=== PATIENT | male | born 1940 | race Caucasian/White ===

== ENCOUNTER 2017-04-15 13:24 | Day surgery (SDC) | payer MEDICARE, OTHER ==
[~2017-04-15] VITALS: Ht 177.8 cm; Wt 99.3 kg
[~2017-04-15 13:24] MED LIST: ACET325 PO; CHLORTHALIDONE; CITA20 PO; COLE1 PO; DUTA.5 PO; HYDR1TAB94 PO; LATA.005SO BOTHEYES; LEVSOD150 PO; LEVSOD175 PO; LISI5 PO; METF500 PO; METF850 PO; POTA10T PO; SERT50 PO; Synthroid150 MCG PO; TAMS.4ER PO; TRAZ100 PO; Tylophen500 MG PO; WARF1 PO; WARF10 PO; WARF5 PO; XARELTO20 MG PO; ZOLP5 PO; [UNRECOGNIZED DRUG - OTHER] PO
[2017-04-15] MEDS ORDERED: SODCHL1 (13:49)
[2017-04-15] MEDS ORDERED: CHLO25B (13:49)
[2017-04-15] MEDS ORDERED: Xalatan2.5 ML (13:50)
[2017-04-15] MEDS ORDERED: TEMA15 (13:50)
[2017-04-15] MEDS ORDERED: ACET325 (13:51)
[2017-04-15] MEDS ORDERED: CANNABIS OIL (13:51)
== END 2017-04-15 15:46 | disposition home or self-care (01) ==
LOC: ORSCSDS 13:24
PROVIDERS: Internal Medicine Gastroenterology
PROC: 0DBK8ZX Excision of Ascending Colon, Via Natural or Artificial Opening Endoscopic, Diagnostic (ICD-10-PCS; principal; 2017-04-15 14:45)
DX: Z12.11 Encounter for screening for malignant neoplasm of colon (principal); K63.5 Polyp of colon; K64.8 Other hemorrhoids; K57.30 Diverticulosis of large intestine without perforation or abscess without bleeding; Z86.010 Personal history of colon polyps; Z80.0 Family history of malignant neoplasm of digestive organs; I48.91 Unspecified atrial fibrillation; G47.33 Obstructive sleep apnea (adult) (pediatric); E11.9 Type 2 diabetes mellitus without complications; E03.9 Hypothyroidism, unspecified; I10 Essential (primary) hypertension; E78.00 Pure hypercholesterolemia, unspecified; E66.9 Obesity, unspecified; Z68.31 Body mass index [BMI] 31.0-31.9, adult; F90.9 Attention-deficit hyperactivity disorder, unspecified type; F95.2 Tourette's disorder; Z87.891 Personal history of nicotine dependence; Z79.01 Long term (current) use of anticoagulants; Z79.84 Long term (current) use of oral hypoglycemic drugs; Z79.899 Other long term (current) drug therapy
CPT/HCPCS: 82947; 88305; J7120

== ENCOUNTER 2018-06-13 06:47 | Emergency (ER) | payer MEDICARE, OTHER ==
[~2018-06-13] VITALS: Ht 175.3 cm; Wt 99.8 kg
[~2018-06-13 06:47] MED LIST changes: +ACET325; +CANNABIS OIL; +CHLO25B; +METF500C PO; -METF850 PO; +SODCHL1; +TEMA15; +Xalatan2.5 ML
[2018-06-13] MEDS ORDERED: TRAZ50 PO (07:36)
[2018-06-13] MEDS ORDERED: Robaxin500 MG PO ×2 (09:11→09:13)
== END 2018-06-13 09:38 | disposition home or self-care (01) ==
LOC: ER 06:47
DX: S22.32XA Fracture of one rib, left side, initial encounter for closed fracture (principal); Z91.011 Allergy to milk products; Z88.5 Allergy status to narcotic agent; Z79.84 Long term (current) use of oral hypoglycemic drugs; Z79.899 Other long term (current) drug therapy; I48.91 Unspecified atrial fibrillation; E11.9 Type 2 diabetes mellitus without complications; E78.5 Hyperlipidemia, unspecified; Z95.0 Presence of cardiac pacemaker; Z90.49 Acquired absence of other specified parts of digestive tract; Z87.442 Personal history of urinary calculi; Z87.891 Personal history of nicotine dependence; W01.0XXA Fall on same level from slipping, tripping and stumbling without subsequent striking against object, initial encounter; Y92.511 Restaurant or cafe as the place of occurrence of the external cause
CPT/HCPCS: 71101; 99283-25

== ENCOUNTER 2019-10-01 21:32 | Emergency (ER) | payer MEDICARE, OTHER ==
[~2019-10-01] VITALS: Ht 175.3 cm; Wt 90.7 kg
[~2019-10-01 21:32] MED LIST changes: +Robaxin500 MG PO; +TRAZ50 PO
[2019-10-01] MEDS ORDERED: CARV6.25 PO (21:48)
[2019-10-01] MEDS ORDERED: ATOR10 PO (21:48)
[2019-10-01] MEDS ORDERED: CHLO25B PO (21:48)
[2019-10-01] MEDS ORDERED: Prinivil10 MG PO (21:49)
[2019-10-01] MEDS ORDERED: Norco 5-325 Ta1 EACH PO (21:49)
[2019-10-01] MEDS ORDERED: LEVSOD137 PO (21:49)
[2019-10-01] MEDS ORDERED: DUTA.5 PO (21:49)
[2019-10-01] MEDS ORDERED: LATA.005SO BOTHEYES (21:49)
[2019-10-01] MEDS ORDERED: SERT100 PO (21:50)
[2019-10-01] MEDS ORDERED: Glucophage 850850 MG PO (21:50)
[2019-10-01] MEDS ORDERED: POTA10T PO (21:50)
[2019-10-01] MEDS ORDERED: TAMS.4ER PO (21:51)
[2019-10-01] MEDS ORDERED: TRAZ50 PO (21:51)
[2019-10-01] MEDS ORDERED: XARELTO20 MG PO (21:53)
[2019-10-01 22:20] LABS: BASOPHILS ABSOLUTE AUTO 0.06 K/mm3 (0.00-0.23); BASOPHILS PERCENT AUTO 1 % (0-2); EOSINOPHILS ABSOLUTE AUTO 0.58 K/mm3 (0.00-0.68); EOSINOPHILS PERCENT AUTO 6 % (0-6); Hemoglobin 12.5 g/dL (13.5-17.5); IMMATURE GRAN ABSOLUTE AUTO 0.02 K/mm3 (0.00-0.10); IMMATURE GRAN PERCENT AUTO 0 % (0-1); LYMPHOCYTES ABSOLUTE AUTO 1.62 K/mm3 (0.84-5.20); LYMPHOCYTES PERCENT AUTO 18 % (21-46); MONOCYTES ABSOLUTE AUTO 0.96 K/mm3 (0.16-1.47); MONOCYTES PERCENT AUTO 11 % (4-13); Mean Corpuscular HGB 32.6 pg (26.0-34.0); Mean Corpuscular HGB Conc 32.1 g/dL (31.5-36.5); Mean Corpuscular Volume 102 fL (80-100); Mean Platelet Volume 10.2 fL (9.1-12.4); NEUTROPHILS ABSOLUTE AUTO 5.87 K/mm3 (1.96-9.15); NEUTROPHILS PERCENT AUTO 64 % (41-73); Platelet Count 243 K/mm3 (150-400); RDW Coefficient Variation 13.4 % (11.7-14.2); RDW Standard Deviation 50.7 fL (35.1-46.3); Red Blood Cell Count 3.83 M/mm3 (4.30-5.90); White Blood Cell Count 9.11 K/mm3 (4.00-11.30)
[2019-10-01 22:37] LABS: Alanine Aminotransfer (ALT/SGP 28 U/L (12-78); Albumin, Blood 3.4 g/dL (3.4-5.0); Albumin/Globulin Ratio 1.1 (0.8-1.8); Alk Phos 118 U/L (50-136); Anion Gap 8 mmol/L (6-16); Aspartate Aminotrans (AST/SGOT 29 U/L (12-37); Bilirubin, Total 0.3 mg/dL (0.1-1.0); Blood Urea Nitrogen 26 mg/dL (8-24); CO2, Blood 28 mmol/L (21-32); Calcium, Blood 8.8 mg/dL (8.5-10.1); Chloride, Blood 103 mmol/L (98-108); Creatinine, Blood 1.37 mg/dL (0.60-1.20); Globulin, Blood 3.2 g/dL (2.2-4.0); Glomerular Filtration Rate 53 (60-); Glucose, Blood 119 mg/dL (70-99); Sodium, Blood 139 mmol/L (136-145); Total Protein, Blood 6.6 g/dL (6.4-8.2); Troponin I <0.015 ng/mL (0.000-0.040)
== END 2019-10-01 23:18 | disposition home or self-care (01) ==
LOC: ER 21:32
PROVIDERS: Physician Assistant
DX: R55 Syncope and collapse (principal); E86.0 Dehydration; Z91.011 Allergy to milk products; Z88.5 Allergy status to narcotic agent; Z79.84 Long term (current) use of oral hypoglycemic drugs; Z79.899 Other long term (current) drug therapy; I48.91 Unspecified atrial fibrillation; E03.9 Hypothyroidism, unspecified; E11.9 Type 2 diabetes mellitus without complications; E78.5 Hyperlipidemia, unspecified; N40.0 Benign prostatic hyperplasia without lower urinary tract symptoms; Z87.891 Personal history of nicotine dependence
CPT/HCPCS: 36415; 80053; 84484; 85025; 93005; 93010; 99284-25; J7030

== ENCOUNTER 2020-01-23 08:04 | Emergency (ER) | payer MEDICARE, OTHER ==
[~2020-01-23] VITALS: Ht 175.3 cm; Wt 90.7 kg
[~2020-01-23 08:04] MED LIST changes: +ATOR10 PO; +CARV6.25 PO; +CHLO25B PO; +Glucophage 850850 MG PO; +LEVSOD137 PO; +Norco 5-325 Ta1 EACH PO; +Prinivil10 MG PO; +SERT100 PO
[2020-01-23] MEDS ORDERED: GABA300 PO (08:22)
== END 2020-01-23 09:11 | disposition home or self-care (01) ==
LOC: ER 08:04
DX: S22.31XA Fracture of one rib, right side, initial encounter for closed fracture (principal); E03.9 Hypothyroidism, unspecified; E11.9 Type 2 diabetes mellitus without complications; I10 Essential (primary) hypertension; E78.5 Hyperlipidemia, unspecified; Z95.0 Presence of cardiac pacemaker; Z91.011 Allergy to milk products; Z88.5 Allergy status to narcotic agent; Z79.899 Other long term (current) drug therapy; Z79.84 Long term (current) use of oral hypoglycemic drugs; Z79.01 Long term (current) use of anticoagulants; Z87.442 Personal history of urinary calculi; Z87.891 Personal history of nicotine dependence; W18.30XA Fall on same level, unspecified, initial encounter; Y93.01 Activity, walking, marching and hiking
CPT/HCPCS: 71101; 99283-25

== ENCOUNTER 2020-05-15 12:46 | Day surgery (SDC) | payer MEDICARE, OTHER ==
[~2020-05-15] VITALS: Ht 175.3 cm; Wt 92.7 kg
[~2020-05-15 12:46] MED LIST changes: +ATORVASTATIN CA10 M1 PO; +GABA300 PO; +KLOR-CON 1010 MEQ; +SYNTHROID137 MCG PO
== END 2020-05-15 15:05 | disposition home or self-care (01) ==
LOC: ORSCSDS 12:46
PROVIDERS: Internal Medicine Gastroenterology
PROC: 0DJD8ZZ Inspection of Lower Intestinal Tract, Via Natural or Artificial Opening Endoscopic (ICD-10-PCS; principal; 2020-05-15 14:00)
DX: Z12.11 Encounter for screening for malignant neoplasm of colon (principal); K57.30 Diverticulosis of large intestine without perforation or abscess without bleeding; K64.8 Other hemorrhoids; Z86.010 Personal history of colon polyps; E11.9 Type 2 diabetes mellitus without complications; G47.33 Obstructive sleep apnea (adult) (pediatric); E03.9 Hypothyroidism, unspecified; I10 Essential (primary) hypertension; E78.00 Pure hypercholesterolemia, unspecified; F90.9 Attention-deficit hyperactivity disorder, unspecified type; I48.91 Unspecified atrial fibrillation; F95.2 Tourette's disorder; Z79.84 Long term (current) use of oral hypoglycemic drugs; Z79.899 Other long term (current) drug therapy; Z87.891 Personal history of nicotine dependence
CPT/HCPCS: 82947; J2704; J7120

== ENCOUNTER 2020-07-18 07:58 | Day surgery (SDC) | payer MEDICARE, OTHER ==
[~2020-07-18] VITALS: Ht 175.3 cm; Wt 95.6 kg
== END 2020-07-18 09:39 | disposition home or self-care (01) ==
LOC: ORSCSDS 07:58
PROVIDERS: Internal Medicine Gastroenterology
PROC: 0DJ08ZZ Inspection of Upper Intestinal Tract, Via Natural or Artificial Opening Endoscopic (ICD-10-PCS; principal; 2020-07-18 09:15)
DX: Z13.810 Encounter for screening for upper gastrointestinal disorder (principal); Z80.0 Family history of malignant neoplasm of digestive organs; I10 Essential (primary) hypertension; E11.9 Type 2 diabetes mellitus without complications; G47.33 Obstructive sleep apnea (adult) (pediatric); I48.91 Unspecified atrial fibrillation; E03.9 Hypothyroidism, unspecified; E78.00 Pure hypercholesterolemia, unspecified; E66.9 Obesity, unspecified; Z68.31 Body mass index [BMI] 31.0-31.9, adult; Z87.891 Personal history of nicotine dependence; Z79.01 Long term (current) use of anticoagulants; Z79.899 Other long term (current) drug therapy
CPT/HCPCS: 82947; J2704; J7120

== ENCOUNTER 2021-09-04 06:06 | Emergency (ER) | payer MEDICARE, OTHER ==
[~2021-09-04] VITALS: Ht 175.3 cm; Wt 90.7 kg
[~2021-09-04 06:06] MED LIST changes: +CEFP200 PO
[2021-09-04] MEDS ORDERED: LEVFLO500 PO ×2 (08:42→08:45)
== END 2021-09-04 09:30 | disposition home or self-care (01) ==
LOC: ER 06:06
DX: N45.2 Orchitis (principal); N45.1 Epididymitis; I10 Essential (primary) hypertension; E03.9 Hypothyroidism, unspecified; I11.0 Hypertensive heart disease with heart failure; I50.9 Heart failure, unspecified; N40.0 Benign prostatic hyperplasia without lower urinary tract symptoms; E78.5 Hyperlipidemia, unspecified; I48.91 Unspecified atrial fibrillation; Z79.84 Long term (current) use of oral hypoglycemic drugs; Z79.899 Other long term (current) drug therapy; Z88.5 Allergy status to narcotic agent; Z91.011 Allergy to milk products; Z95.0 Presence of cardiac pacemaker; Z79.01 Long term (current) use of anticoagulants
CPT/HCPCS: 76870; A9270

== ENCOUNTER 2022-09-03 10:01 | Emergency (ER) | payer MEDICARE, OTHER ==
[~2022-09-03] VITALS: Ht 175.3 cm; Wt 95.2 kg
[~2022-09-03 10:01] MED LIST changes: -KLOR-CON 1010 MEQ; +KLOR-CON 1010 MEQ PO; +LEVFLO500 PO
[2022-09-03] MEDS ORDERED: ZOLOFT10013 PO (10:45)
[2022-09-03 11:00] VITALS: BP 93/53
[2022-09-03 11:00] LABS: BASOPHILS ABSOLUTE AUTO 0.05 K/mm3 (0.00-0.23); BASOPHILS PERCENT AUTO 1 % (0-2); EOSINOPHILS ABSOLUTE AUTO 0.33 K/mm3 (0.00-0.68); EOSINOPHILS PERCENT AUTO 3 % (0-6); Hematocrit 38.4 % (37.0-53.0); Hemoglobin 13.5 g/dL (13.5-17.5); IMMATURE GRAN ABSOLUTE AUTO 0.03 K/mm3 (0.00-0.10); IMMATURE GRAN PERCENT AUTO 0 % (0-1); LYMPHOCYTES ABSOLUTE AUTO 2.58 K/mm3 (0.84-5.20); LYMPHOCYTES PERCENT AUTO 24 % (21-46); MONOCYTES ABSOLUTE AUTO 1.21 K/mm3 (0.16-1.47); MONOCYTES PERCENT AUTO 11 % (4-13); Mean Corpuscular HGB 33.8 pg (26.0-34.0); Mean Corpuscular HGB Conc 35.2 g/dL (31.5-36.5); Mean Corpuscular Volume 96 fL (80-100); NEUTROPHILS ABSOLUTE AUTO 6.62 K/mm3 (1.96-9.15); NEUTROPHILS PERCENT AUTO 61 % (41-73); Platelet Count 283 K/mm3 (150-400); RDW Coefficient Variation 12.7 % (11.7-14.2); RDW Standard Deviation 44.9 fL (35.1-46.3); Red Blood Cell Count 3.99 M/mm3 (4.30-5.90); White Blood Cell Count 10.82 K/mm3 (4.00-11.30)
[2022-09-03 11:21] LABS: Albumin, Blood 3.7 g/dL (3.4-5.0); Albumin/Globulin Ratio 1.1 (0.8-1.8); Bilirubin, Total 0.4 mg/dL (0.1-1.0); Bun/Creatinine Ratio 17.9 (12.0-20.0); Calcium, Blood 8.8 mg/dL (8.5-10.1); Creatinine, Blood 1.06 mg/dL (0.60-1.20); Globulin, Blood 3.3 g/dL (2.2-4.0); Potassium, Blood 3.2 mmol/L (3.5-5.5)
== END 2022-09-03 13:29 | disposition home or self-care (01) ==
LOC: ER 10:01
PROVIDERS: Emergency Medicine
DX: R19.7 Diarrhea, unspecified (principal); R53.1 Weakness; E03.9 Hypothyroidism, unspecified; E11.9 Type 2 diabetes mellitus without complications; I11.0 Hypertensive heart disease with heart failure; E78.00 Pure hypercholesterolemia, unspecified; I50.9 Heart failure, unspecified; I48.91 Unspecified atrial fibrillation; Z91.011 Allergy to milk products; Z88.5 Allergy status to narcotic agent; Z79.01 Long term (current) use of anticoagulants; Z79.84 Long term (current) use of oral hypoglycemic drugs; Z79.899 Other long term (current) drug therapy
CPT/HCPCS: 80053; 85025; 93005; 93010; 99285-25; J7030

== ENCOUNTER → 2023-01-06 | Outpatient (CLI) | payer MEDICARE, OTHER ==
[~2023-01-06] MED LIST changes: +ZOLOFT10013 PO
== END | disposition home or self-care (01) ==
LOC: LAB SHORT 12:00 → LAB 12:00
DX: L97.509 Non-pressure chronic ulcer of other part of unspecified foot with unspecified severity (principal)
CPT/HCPCS: 87070; 87075; 87077; 87147; 87186; 87205

== ENCOUNTER 2023-01-17 21:44 | Emergency (ER) | payer MEDICARE, OTHER ==
[~2023-01-17] VITALS: Ht 177.8 cm; Wt 95.2 kg
[2023-01-17 22:49] LABS: BASOPHILS ABSOLUTE AUTO 0.06 K/mm3 (0.00-0.23); BASOPHILS PERCENT AUTO 1 % (0-2); EOSINOPHILS ABSOLUTE AUTO 0.41 K/mm3 (0.00-0.68); EOSINOPHILS PERCENT AUTO 4 % (0-6); Hematocrit 34.2 % (37.0-53.0); Hemoglobin 11.8 g/dL (13.5-17.5); IMMATURE GRAN ABSOLUTE AUTO 0.03 K/mm3 (0.00-0.10); IMMATURE GRAN PERCENT AUTO 0 % (0-1); LYMPHOCYTES ABSOLUTE AUTO 1.89 K/mm3 (0.84-5.20); LYMPHOCYTES PERCENT AUTO 18 % (21-46); MONOCYTES ABSOLUTE AUTO 1.49 K/mm3 (0.16-1.47); MONOCYTES PERCENT AUTO 14 % (4-13); Mean Corpuscular HGB 33.1 pg (26.0-34.0); Mean Corpuscular HGB Conc 34.5 g/dL (31.5-36.5); Mean Corpuscular Volume 96 fL (80-100); Mean Platelet Volume 9.6 fL (9.1-12.4); NEUTROPHILS ABSOLUTE AUTO 6.62 K/mm3 (1.96-9.15); NEUTROPHILS PERCENT AUTO 63 % (41-73); Platelet Count 330 K/mm3 (150-400); RDW Coefficient Variation 13.1 % (11.7-14.2); RDW Standard Deviation 46.6 fL (35.1-46.3); Red Blood Cell Count 3.56 M/mm3 (4.30-5.90)
[2023-01-17 23:13] LABS: Magnesium, Blood 2.1 mg/dL (1.6-2.4)
[2023-01-17 23:29] LABS: D-Dimer, Quantitative 0.88 mg/L FEU (0.00-0.52); International Normalized Ratio 1.32; Prothrombin Time Results 13.6 Sec (9.7-11.5)
[2023-01-17 23:38] LABS: Albumin, Blood 3.2 g/dL (3.4-5.0); Albumin/Globulin Ratio 0.9 (0.8-1.8); Bilirubin, Total 0.4 mg/dL (0.1-1.0); Bun/Creatinine Ratio 14.5 (12.0-20.0); Calcium, Blood 8.8 mg/dL (8.5-10.1); Creatinine, Blood 1.38 mg/dL (0.60-1.20); Globulin, Blood 3.6 g/dL (2.2-4.0); Phosphorus, Blood 2.9 mg/dL (2.5-4.9); Potassium, Blood 3.5 mmol/L (3.5-5.5); Thyroid Stimulating Hormone 0.379 uIU/mL (0.360-4.800); Total Protein, Blood 6.8 g/dL (6.4-8.2)
[2023-01-18 01:01] LABS: Source, Urine Voided
[2023-01-18 01:16] LABS: Bilirubin, Urine Neg (Neg); Blood, Urine Neg (Neg); Glucose Qualitative, Urine Neg (Neg); Ketones, Urine Neg (Neg); Leukocyte Esterase, Urine 1+ (Neg); Nitrite, Urine Neg (Neg); Protein, Urine Neg (Neg); Urobilinogen, Urine NORM (Normal); pH, Urine 6.5 (5.0-8.0)
[2023-01-18 01:22] LABS: Appearance, Urine Clear (Clear); Color, Urine Yellow (P-Yellow)
[2023-01-18 01:23] LABS: Bacteria Few /hpf; Red Blood Cells, Urine 0-2 /hpf (0-2); Squamous Epithelial Cells Mod /hpf (Few); White Blood Cells, Urine 0-2 /hpf (0-5)
[2023-01-18 10:10] VITALS: BP 110/54
== END 2023-01-18 10:10 | disposition home or self-care (01) ==
LOC: ER 21:44
PROVIDERS: Emergency Medicine
DX: Z00.8 Encounter for other general examination (principal); R29.6 Repeated falls; Z91.011 Allergy to milk products; Z88.5 Allergy status to narcotic agent; Z79.899 Other long term (current) drug therapy; Z79.84 Long term (current) use of oral hypoglycemic drugs; E03.9 Hypothyroidism, unspecified; E11.9 Type 2 diabetes mellitus without complications; I11.0 Hypertensive heart disease with heart failure; E78.5 Hyperlipidemia, unspecified; I50.9 Heart failure, unspecified; I48.91 Unspecified atrial fibrillation
CPT/HCPCS: 70450; 71046; 80053; 81001; 83735; 84100; 84443; 85025; 85379; 85610; 87086; 93005; 93010; 99285-25; A9270

== ENCOUNTER 2023-01-24 01:02 | Day surgery (SDC) | payer MEDICARE, OTHER | END 2023-01-25 22:53 | disposition home or self-care (01) | LOC: WOUND 01:02 | DX: E11.621 Type 2 diabetes mellitus with foot ulcer (principal); L97.422 Non-pressure chronic ulcer of left heel and midfoot with fat layer exposed; E11.42 Type 2 diabetes mellitus with diabetic polyneuropathy; E11.51 Type 2 diabetes mellitus with diabetic peripheral angiopathy without gangrene; E11.69 Type 2 diabetes mellitus with other specified complication; M20.42 Other hammer toe(s) (acquired), left foot; M86.9 Osteomyelitis, unspecified; I87.2 Venous insufficiency (chronic) (peripheral); L97.421 Non-pressure chronic ulcer of left heel and midfoot limited to breakdown of skin; M19.072 Primary osteoarthritis, left ankle and foot; M21.612 Bunion of left foot; M79.89 Other specified soft tissue disorders; I70.90 Unspecified atherosclerosis; M20.12 Hallux valgus (acquired), left foot | CPT/HCPCS: 73630; G0463 ==

== ENCOUNTER 2023-01-31 02:15 | Day surgery (SDC) | payer MEDICARE, OTHER | END 2023-01-31 22:37 | disposition home or self-care (01) | LOC: WOUND 02:15 | DX: E11.621 Type 2 diabetes mellitus with foot ulcer (principal); L97.425 Non-pressure chronic ulcer of left heel and midfoot with muscle involvement without evidence of necrosis; E11.42 Type 2 diabetes mellitus with diabetic polyneuropathy; E11.51 Type 2 diabetes mellitus with diabetic peripheral angiopathy without gangrene; E11.69 Type 2 diabetes mellitus with other specified complication; M86.9 Osteomyelitis, unspecified; M20.42 Other hammer toe(s) (acquired), left foot; M20.5X2 Other deformities of toe(s) (acquired), left foot | CPT/HCPCS: G0463 ==

== ENCOUNTER 2023-02-09 01:58 | Day surgery (SDC) | payer MEDICARE, OTHER | END 2023-02-09 22:46 | disposition home or self-care (01) | LOC: WOUND 01:58 | DX: E11.621 Type 2 diabetes mellitus with foot ulcer (principal); L97.425 Non-pressure chronic ulcer of left heel and midfoot with muscle involvement without evidence of necrosis; E11.51 Type 2 diabetes mellitus with diabetic peripheral angiopathy without gangrene; E11.69 Type 2 diabetes mellitus with other specified complication; E11.42 Type 2 diabetes mellitus with diabetic polyneuropathy; L97.509 Non-pressure chronic ulcer of other part of unspecified foot with unspecified severity; M20.42 Other hammer toe(s) (acquired), left foot; I87.2 Venous insufficiency (chronic) (peripheral) | CPT/HCPCS: 87070; 87075; 87077; 87147; 87186; 87205; A9270; G0463 ==

== ENCOUNTER 2023-02-16 06:11 | Day surgery (SDC) | payer MEDICARE, OTHER | END 2023-02-16 22:47 | disposition home or self-care (01) | LOC: WOUND 06:11 | DX: E11.621 Type 2 diabetes mellitus with foot ulcer (principal); L97.522 Non-pressure chronic ulcer of other part of left foot with fat layer exposed; L97.421 Non-pressure chronic ulcer of left heel and midfoot limited to breakdown of skin; E11.42 Type 2 diabetes mellitus with diabetic polyneuropathy; E11.51 Type 2 diabetes mellitus with diabetic peripheral angiopathy without gangrene; E11.69 Type 2 diabetes mellitus with other specified complication; M86.9 Osteomyelitis, unspecified; M20.42 Other hammer toe(s) (acquired), left foot; M20.5X2 Other deformities of toe(s) (acquired), left foot; I87.2 Venous insufficiency (chronic) (peripheral) | CPT/HCPCS: G0463 ==

== ENCOUNTER 2023-02-21 01:52 | Day surgery (SDC) | payer MEDICARE, OTHER | END 2023-02-21 22:53 | disposition home or self-care (01) | LOC: WOUND 01:52 | DX: E11.621 Type 2 diabetes mellitus with foot ulcer (principal); L97.422 Non-pressure chronic ulcer of left heel and midfoot with fat layer exposed; E11.69 Type 2 diabetes mellitus with other specified complication; E11.42 Type 2 diabetes mellitus with diabetic polyneuropathy; E11.51 Type 2 diabetes mellitus with diabetic peripheral angiopathy without gangrene; M86.9 Osteomyelitis, unspecified; M20.5X2 Other deformities of toe(s) (acquired), left foot; M20.42 Other hammer toe(s) (acquired), left foot; I87.2 Venous insufficiency (chronic) (peripheral); L97.509 Non-pressure chronic ulcer of other part of unspecified foot with unspecified severity | CPT/HCPCS: A9270; G0463 ==

== ENCOUNTER 2023-03-03 02:42 | Day surgery (SDC) | payer MEDICARE, OTHER | END 2023-03-03 22:35 | disposition home or self-care (01) | LOC: WOUND 02:42 | DX: E11.621 Type 2 diabetes mellitus with foot ulcer (principal); L97.422 Non-pressure chronic ulcer of left heel and midfoot with fat layer exposed; E11.42 Type 2 diabetes mellitus with diabetic polyneuropathy; E11.51 Type 2 diabetes mellitus with diabetic peripheral angiopathy without gangrene; E11.69 Type 2 diabetes mellitus with other specified complication; M86.9 Osteomyelitis, unspecified; M20.42 Other hammer toe(s) (acquired), left foot; M20.5X2 Other deformities of toe(s) (acquired), left foot; I87.2 Venous insufficiency (chronic) (peripheral) | CPT/HCPCS: A9270 ==

== ENCOUNTER 2023-03-09 02:29 | Day surgery (SDC) | payer MEDICARE, OTHER | END 2023-03-09 22:38 | disposition home or self-care (01) | LOC: WOUND 02:29 | DX: E11.621 Type 2 diabetes mellitus with foot ulcer (principal); L97.422 Non-pressure chronic ulcer of left heel and midfoot with fat layer exposed; L97.509 Non-pressure chronic ulcer of other part of unspecified foot with unspecified severity; E11.69 Type 2 diabetes mellitus with other specified complication; M86.9 Osteomyelitis, unspecified; E11.42 Type 2 diabetes mellitus with diabetic polyneuropathy; E11.51 Type 2 diabetes mellitus with diabetic peripheral angiopathy without gangrene; M20.42 Other hammer toe(s) (acquired), left foot; I87.2 Venous insufficiency (chronic) (peripheral) | CPT/HCPCS: A9270; G0463 ==

== ENCOUNTER 2023-03-16 03:25 | Day surgery (SDC) | payer MEDICARE, OTHER | END 2023-03-16 22:46 | disposition home or self-care (01) | LOC: WOUND 03:25 | DX: E11.621 Type 2 diabetes mellitus with foot ulcer (principal); L97.509 Non-pressure chronic ulcer of other part of unspecified foot with unspecified severity; L97.421 Non-pressure chronic ulcer of left heel and midfoot limited to breakdown of skin; E11.42 Type 2 diabetes mellitus with diabetic polyneuropathy; E11.51 Type 2 diabetes mellitus with diabetic peripheral angiopathy without gangrene; E11.69 Type 2 diabetes mellitus with other specified complication; M86.9 Osteomyelitis, unspecified; M20.42 Other hammer toe(s) (acquired), left foot; M20.5X2 Other deformities of toe(s) (acquired), left foot; I87.2 Venous insufficiency (chronic) (peripheral) | CPT/HCPCS: G0463 ==

== ENCOUNTER 2023-03-23 01:41 | Day surgery (SDC) | payer MEDICARE, OTHER | END 2023-03-23 22:43 | disposition home or self-care (01) | LOC: WOUND 01:41 | DX: E11.621 Type 2 diabetes mellitus with foot ulcer (principal); L97.421 Non-pressure chronic ulcer of left heel and midfoot limited to breakdown of skin; E11.42 Type 2 diabetes mellitus with diabetic polyneuropathy; E11.51 Type 2 diabetes mellitus with diabetic peripheral angiopathy without gangrene; M86.9 Osteomyelitis, unspecified; M20.42 Other hammer toe(s) (acquired), left foot; M20.5X2 Other deformities of toe(s) (acquired), left foot; I87.2 Venous insufficiency (chronic) (peripheral) | CPT/HCPCS: G0463 ==

== ENCOUNTER 2023-03-30 05:21 | Day surgery (SDC) | payer MEDICARE, OTHER | END 2023-03-30 22:47 | disposition home or self-care (01) | LOC: WOUND 05:21 | DX: E11.621 Type 2 diabetes mellitus with foot ulcer (principal); L97.509 Non-pressure chronic ulcer of other part of unspecified foot with unspecified severity; L97.421 Non-pressure chronic ulcer of left heel and midfoot limited to breakdown of skin; E11.42 Type 2 diabetes mellitus with diabetic polyneuropathy; E11.51 Type 2 diabetes mellitus with diabetic peripheral angiopathy without gangrene; E11.69 Type 2 diabetes mellitus with other specified complication; M20.42 Other hammer toe(s) (acquired), left foot; M20.5X2 Other deformities of toe(s) (acquired), left foot; I87.2 Venous insufficiency (chronic) (peripheral) | CPT/HCPCS: G0463 ==

== ENCOUNTER 2023-04-07 04:46 | Day surgery (SDC) | payer MEDICARE, OTHER | END 2023-04-07 22:43 | disposition home or self-care (01) | LOC: WOUND 04:46 | DX: E11.621 Type 2 diabetes mellitus with foot ulcer (principal); L97.422 Non-pressure chronic ulcer of left heel and midfoot with fat layer exposed; E11.42 Type 2 diabetes mellitus with diabetic polyneuropathy; E11.51 Type 2 diabetes mellitus with diabetic peripheral angiopathy without gangrene; M86.9 Osteomyelitis, unspecified; M20.42 Other hammer toe(s) (acquired), left foot; M20.5X2 Other deformities of toe(s) (acquired), left foot; I87.2 Venous insufficiency (chronic) (peripheral) | CPT/HCPCS: A9270 ==

== ENCOUNTER 2023-04-13 01:34 | Day surgery (SDC) | payer MEDICARE, OTHER | END 2023-04-13 22:41 | disposition home or self-care (01) | LOC: WOUND 01:34 | DX: E11.621 Type 2 diabetes mellitus with foot ulcer (principal); L97.422 Non-pressure chronic ulcer of left heel and midfoot with fat layer exposed; I87.2 Venous insufficiency (chronic) (peripheral); E11.42 Type 2 diabetes mellitus with diabetic polyneuropathy; E11.51 Type 2 diabetes mellitus with diabetic peripheral angiopathy without gangrene; E11.69 Type 2 diabetes mellitus with other specified complication; M86.9 Osteomyelitis, unspecified; M20.42 Other hammer toe(s) (acquired), left foot; M20.5X2 Other deformities of toe(s) (acquired), left foot ==

== ENCOUNTER 2023-04-20 02:58 | Day surgery (SDC) | payer MEDICARE, OTHER | END 2023-04-20 23:13 | disposition home or self-care (01) | LOC: WOUND 02:58 | DX: E11.621 Type 2 diabetes mellitus with foot ulcer (principal); L97.522 Non-pressure chronic ulcer of other part of left foot with fat layer exposed; L97.512 Non-pressure chronic ulcer of other part of right foot with fat layer exposed; I87.2 Venous insufficiency (chronic) (peripheral); E11.42 Type 2 diabetes mellitus with diabetic polyneuropathy; E11.51 Type 2 diabetes mellitus with diabetic peripheral angiopathy without gangrene; E11.69 Type 2 diabetes mellitus with other specified complication; M86.9 Osteomyelitis, unspecified; M20.42 Other hammer toe(s) (acquired), left foot; M20.5X2 Other deformities of toe(s) (acquired), left foot | CPT/HCPCS: G0463 ==

== ENCOUNTER 2023-04-27 02:53 | Day surgery (SDC) | payer MEDICARE, OTHER | END 2023-04-27 22:49 | disposition home or self-care (01) | LOC: WOUND 02:53 | DX: E11.621 Type 2 diabetes mellitus with foot ulcer (principal); L97.422 Non-pressure chronic ulcer of left heel and midfoot with fat layer exposed; S91.119A Laceration without foreign body of unspecified toe without damage to nail, initial encounter; L97.509 Non-pressure chronic ulcer of other part of unspecified foot with unspecified severity; E11.42 Type 2 diabetes mellitus with diabetic polyneuropathy; E11.51 Type 2 diabetes mellitus with diabetic peripheral angiopathy without gangrene; E11.69 Type 2 diabetes mellitus with other specified complication; M86.9 Osteomyelitis, unspecified; M20.5X2 Other deformities of toe(s) (acquired), left foot; X58.XXXA Exposure to other specified factors, initial encounter | CPT/HCPCS: G0463 ==

== ENCOUNTER 2023-05-04 02:55 | Day surgery (SDC) | payer MEDICARE, OTHER | END 2023-05-04 23:07 | disposition home or self-care (01) | LOC: WOUND 02:55 | DX: E11.621 Type 2 diabetes mellitus with foot ulcer (principal); L97.422 Non-pressure chronic ulcer of left heel and midfoot with fat layer exposed; L97.509 Non-pressure chronic ulcer of other part of unspecified foot with unspecified severity; E11.42 Type 2 diabetes mellitus with diabetic polyneuropathy; E11.69 Type 2 diabetes mellitus with other specified complication; M86.9 Osteomyelitis, unspecified; M20.42 Other hammer toe(s) (acquired), left foot; M20.5X2 Other deformities of toe(s) (acquired), left foot; I87.2 Venous insufficiency (chronic) (peripheral) | CPT/HCPCS: G0463 ==

== ENCOUNTER 2023-05-11 01:35 | Day surgery (SDC) | payer MEDICARE, OTHER | END 2023-05-11 23:17 | disposition home or self-care (01) | LOC: WOUND 01:35 | DX: E11.621 Type 2 diabetes mellitus with foot ulcer (principal); L97.422 Non-pressure chronic ulcer of left heel and midfoot with fat layer exposed; E11.69 Type 2 diabetes mellitus with other specified complication; M86.9 Osteomyelitis, unspecified; E11.42 Type 2 diabetes mellitus with diabetic polyneuropathy; E11.51 Type 2 diabetes mellitus with diabetic peripheral angiopathy without gangrene; M20.42 Other hammer toe(s) (acquired), left foot; I87.2 Venous insufficiency (chronic) (peripheral); S99.921D Unspecified injury of right foot, subsequent encounter; X58.XXXD Exposure to other specified factors, subsequent encounter | CPT/HCPCS: G0463 ==

== ENCOUNTER 2023-05-18 00:10 | Day surgery (SDC) | payer MEDICARE, OTHER | END 2023-05-18 22:34 | disposition home or self-care (01) | LOC: WOUND 00:10 | DX: E11.621 Type 2 diabetes mellitus with foot ulcer (principal); L97.522 Non-pressure chronic ulcer of other part of left foot with fat layer exposed; L89.892 Pressure ulcer of other site, stage 2; E11.40 Type 2 diabetes mellitus with diabetic neuropathy, unspecified; L97.421 Non-pressure chronic ulcer of left heel and midfoot limited to breakdown of skin; E11.51 Type 2 diabetes mellitus with diabetic peripheral angiopathy without gangrene; E11.69 Type 2 diabetes mellitus with other specified complication; M86.9 Osteomyelitis, unspecified; M20.42 Other hammer toe(s) (acquired), left foot; M20.5X2 Other deformities of toe(s) (acquired), left foot; I87.2 Venous insufficiency (chronic) (peripheral) | CPT/HCPCS: G0463 ==

== ENCOUNTER 2023-05-25 05:28 | Day surgery (SDC) | payer MEDICARE, OTHER | END 2023-05-25 22:50 | disposition home or self-care (01) | LOC: WOUND 05:28 | DX: E11.621 Type 2 diabetes mellitus with foot ulcer (principal); L97.422 Non-pressure chronic ulcer of left heel and midfoot with fat layer exposed; L89.892 Pressure ulcer of other site, stage 2; E11.42 Type 2 diabetes mellitus with diabetic polyneuropathy; E11.51 Type 2 diabetes mellitus with diabetic peripheral angiopathy without gangrene; E11.69 Type 2 diabetes mellitus with other specified complication; M86.9 Osteomyelitis, unspecified; M20.42 Other hammer toe(s) (acquired), left foot; M20.5X2 Other deformities of toe(s) (acquired), left foot; I87.2 Venous insufficiency (chronic) (peripheral) | CPT/HCPCS: G0463 ==

== ENCOUNTER 2023-06-01 02:08 | Day surgery (SDC) | payer MEDICARE, OTHER | END 2023-06-01 22:48 | disposition home or self-care (01) | LOC: WOUND 02:08 | DX: E11.621 Type 2 diabetes mellitus with foot ulcer (principal); L89.892 Pressure ulcer of other site, stage 2; L97.509 Non-pressure chronic ulcer of other part of unspecified foot with unspecified severity; L97.421 Non-pressure chronic ulcer of left heel and midfoot limited to breakdown of skin; E11.42 Type 2 diabetes mellitus with diabetic polyneuropathy; E11.51 Type 2 diabetes mellitus with diabetic peripheral angiopathy without gangrene; E11.69 Type 2 diabetes mellitus with other specified complication; M20.42 Other hammer toe(s) (acquired), left foot; M20.5X2 Other deformities of toe(s) (acquired), left foot; I87.2 Venous insufficiency (chronic) (peripheral) ==

== ENCOUNTER 2023-08-07 20:22 | Emergency (ER) | payer MEDICARE, OTHER ==
[~2023-08-07] VITALS: Ht 165.1 cm; Wt 59.0 kg
[2023-08-07 20:33] VITALS: BP 147/68
[2023-08-07] MEDS ORDERED: Oxymetazoline 0.05% Nasal Relief Spray 15mL BTL ONE (20:35)
== END 2023-08-07 21:19 | disposition home or self-care (01) ==
LOC: ER 20:22
DX: R04.0 Epistaxis (principal); E03.9 Hypothyroidism, unspecified; E11.9 Type 2 diabetes mellitus without complications; I11.0 Hypertensive heart disease with heart failure; I50.9 Heart failure, unspecified; E78.5 Hyperlipidemia, unspecified; N40.0 Benign prostatic hyperplasia without lower urinary tract symptoms; I48.91 Unspecified atrial fibrillation; Z79.01 Long term (current) use of anticoagulants; Z88.6 Allergy status to analgesic agent; Z91.011 Allergy to milk products; Z88.5 Allergy status to narcotic agent; Z79.899 Other long term (current) drug therapy; Z79.84 Long term (current) use of oral hypoglycemic drugs; Z79.890 Hormone replacement therapy
CPT/HCPCS: 30901; 99282-25; A9270

== ENCOUNTER 2024-04-10 20:02 | Inpatient (IN) | payer OTHER, MEDICARE ==
[~2024-04-10] VITALS: Ht 177.8 cm; Wt 95.6 kg
[2024-04-10 20:38] LABS: BASOPHILS ABSOLUTE AUTO 0.05 K/mm3 (0.00-0.23); BASOPHILS PERCENT AUTO 0 % (0-2); EOSINOPHILS ABSOLUTE AUTO 0.13 K/mm3 (0.00-0.68); EOSINOPHILS PERCENT AUTO 1 % (0-6); Hematocrit 28.7 % (37.0-53.0); Hemoglobin 9.5 g/dL (13.5-17.5); IMMATURE GRAN ABSOLUTE AUTO 0.09 K/mm3 (0.00-0.10); IMMATURE GRAN PERCENT AUTO 1 % (0-1); LYMPHOCYTES ABSOLUTE AUTO 1.62 K/mm3 (0.84-5.20); LYMPHOCYTES PERCENT AUTO 9 % (21-46); MONOCYTES ABSOLUTE AUTO 1.27 K/mm3 (0.16-1.47); MONOCYTES PERCENT AUTO 7 % (4-13); Mean Corpuscular HGB 31.1 pg (26.0-34.0); Mean Corpuscular HGB Conc 33.1 g/dL (31.5-36.5); Mean Corpuscular Volume 94 fL (80-100); NEUTROPHILS ABSOLUTE AUTO 14.78 K/mm3 (1.96-9.15); NEUTROPHILS PERCENT AUTO 82 % (41-73); Platelet Count 363 K/mm3 (150-400); RDW Coefficient Variation 14.9 % (11.7-14.2); RDW Standard Deviation 51.7 fL (35.1-46.3); Red Blood Cell Count 3.05 M/mm3 (4.30-5.90); White Blood Cell Count 17.94 K/mm3 (4.00-11.30)
[2024-04-10 21:07] LABS: Albumin, Blood 3.1 g/dL (3.4-5.0); Albumin/Globulin Ratio 0.9 (0.8-1.8); Bilirubin, Total 0.5 mg/dL (0.1-1.0); Bun/Creatinine Ratio 15.5 (12.0-20.0); Creatinine, Blood 1.03 mg/dL (0.60-1.20); Globulin, Blood 3.3 g/dL (2.2-4.0); Total Protein, Blood 6.4 g/dL (6.4-8.2)
[2024-04-10] MEDS ORDERED: NS 1,000 ML IV SCH (22:25)
[2024-04-10] MEDS ORDERED: FentaNYL Citrate 50 MCG/ML 2 ML Injection IV PRN ×2 (22:25→23:50)
[2024-04-10] MEDS ORDERED: Azithromycin 500 MG in NS 250 ML IV ONE (22:40)
[2024-04-10] MEDS ORDERED: CefTRIAXone Sodium 1,000 MG in NS 50 ML IV ONE (22:40)
[2024-04-11] VITALS (42 sets, daily range): BP systolic 101–149; BP diastolic 44–105
[2024-04-11 00:10] LABS: International Normalized Ratio 1.54
[2024-04-11 00:47] LABS: Influenza A, PCR NEGATIVE (NEGATIVE); Influenza B, PCR NEGATIVE (NEGATIVE); Resp Syncytial Virus, PCR NEGATIVE (NEGATIVE); SARS-Cov-2 (COVID-19) PCR, MMC NEGATIVE (NEGATIVE)
[2024-04-11] MEDS ORDERED: CefTRIAXone Sodium 1,000 MG in NS 100 ML IV ONE (01:35)
[2024-04-11] MEDS ORDERED: HYDROcodone 5-APAP 325 TAB PO PRN ×2 (01:35→16:45)
[2024-04-11 02:33] LABS: Hematocrit 23.3 % (37.0-53.0); Hemoglobin 7.6 g/dL (13.5-17.5)
[2024-04-11] MEDS ORDERED: METF500 PO (03:13)
[2024-04-11] MEDS ORDERED: VENL75ER PO (03:14)
[2024-04-11] MEDS ORDERED: NS 500 ML IV SCH (03:45)
[2024-04-11] MEDS ORDERED: FLU VACC TS2024-25(6MOS UP)/PF 45 MCG/0.5 ML SYRINGE IM ONE (04:10)
[2024-04-11] MEDS ORDERED: HUMAN PROTHROMBIN COMPLX IV ONE ×2 (04:15→04:25)
[2024-04-11] MEDS ORDERED: WATER FOR INJECTION STERILE IV ONE ×2 (04:15→04:25)
--- NOTE | 2024-04-11 04:53 | NUR ---
PT ARRIVED ON UNIT@ 0404 WITH ALL BELONGINGS ON O 2L/NC.
--- NOTE | 2024-04-11 04:54 | NUR ---
PT TRANSFERRED TO ICU 05 @ 0440 WITH ALL BELONGINGS ON O2 3L/NC DUE TO SOB FROM ATTENDS CHANGE.
--- NOTE | 2024-04-11 04:54 | NUR ---
REPORT GIVEN TO DULCE MARIA SPRINGER ICU 05 @ 5243.
[2024-04-11] MEDS ORDERED: Furosemide 10 MG/ML 4ML Vial IV ONE (04:57)
--- NOTE | 2024-04-11 04:57 | NUR ---
ATTEMPTED TO CALL PT [facility] @ 8225 TO INFORM THEM OF PT TRANSFER TO ICU. CALL WENT STRAIGHT TO VOICEMAIL AND MESSAGE LEFT WITH ICU DESK NUMBER AND ROOM NUMBER ICU 05.
[2024-04-11] MEDS ORDERED: Levothyroxine Sodium 0.137 MG Tab PO SCH (06:00)
--- NOTE | 2024-04-11 06:09 | NUR ---
PT IS ALERT AND ORIENTED X4, ABLE TO FOLLOW COMMANDS, VERY PLEASANT AND NICE, WAS AT BEDSIDE FOR BLOOD CONSENT FORM. PT HEART RATE IS PACED AND BLOOD PRESSURE 119/68, PT DENIES ANY CHEST PAIN. PT SOUNDS VERY WHEEZY AND ORDERED LASIX, PT ON 3L NC AND SATTING >95%. PT HAS ONE PATENT IV AND TY SPEECH ASSISTANT IN PCU PUT IN A POWERGLIDE SINCE PT WILL HAVE MULTIPLE BLOOD DRAWS. PT WILL BE GETTING 2 UNITS OF BLOOD PER AND PT GOT KCENTRA. NO OTHER INTERVENTIONS AT THIS TIME. PLAN OF CARE CONTINUED.
[2024-04-11] MEDS ORDERED: Insulin Human Lispro 100 Units/ML 3ML Syringe SC SCH (07:30)
[2024-04-11] MEDS ORDERED: Lactated Ringer's 1,000 ML IV SCH (08:15)
[2024-04-11] MEDS ORDERED: Ipratropium/Albuterol SulF 2.5-0.5MG/3 ML Amp INH ONE (08:25)
[2024-04-11] MEDS ORDERED: Midazolam HCl 1MG / ML 2ML Vial ONE (08:30)
[2024-04-11] MEDS ORDERED: Lidocaine HCl 2% 20 ML MDV ONE (08:36)
[2024-04-11] MEDS ORDERED: Etomidate 2MG / ML 10ML Vial ONE (08:39)
[2024-04-11] MEDS ORDERED: HydroCHLOROthiazide 25 mg Tab PO SCH (09:00)
[2024-04-11] MEDS ORDERED: Venlafaxine HCl 75 MG CapCR PO SCH (09:00)
[2024-04-11] MEDS ORDERED: Potassium Chloride 10 Meq Tablet SA PO SCH (09:00)
[2024-04-11] MEDS ORDERED: Azithromycin 500 MG in NS 250 ML IV SCH (09:00)
[2024-04-11] MEDS ORDERED: Atorvastatin 10 MG Tab PO SCH (09:00)
[2024-04-11] MEDS ORDERED: Dutasteride 0.5 MG Cap PO SCH (09:00)
[2024-04-11] MEDS ORDERED: Carvedilol 6.25 MG Tab PO SCH (09:00)
[2024-04-11] MEDS ORDERED: Tamsulosin HCl 0.4 MG Cap PO SCH (09:00)
[2024-04-11] MEDS ORDERED: FentaNYL Citrate 50 MCG/ML 2 ML Injection ONE (09:16)
--- NOTE | 2024-04-11 09:34 | NUR ---
04/11/24 0934 Sandro Madrigal LIDOCAINE 1% PLAIN WAS USED FOR LOCAL FROM THE PLEURAL CATH KIT. NO PRE ANTIBIOTICS ORDERED.
[2024-04-11 10:53] LABS: Hematocrit 27.6 % (37.0-53.0); Hemoglobin 9.1 g/dL (13.5-17.5)
--- NOTE | 2024-04-11 11:43 | NUR ---
Pt. is awake in bed and welcomes my visit. Pt. is pleasant, but restless with discomfort. Spouse is at bedside and verbalized that it is the Pts. back that is the most uncomfortable. Facilitated a life review. Listened with interest and empathy. Pt displayed evidence of engagement and welcomed prayer. Prayed with the Pt. Pt. and spouse verbalized gratitude for the spiritual care visit.
[2024-04-11 14:40] LABS: Hematocrit 26.1 % (37.0-53.0); Hemoglobin 8.8 g/dL (13.5-17.5)
[2024-04-11] MEDS ORDERED: LACT10SY PO (16:07)
[2024-04-11 17:43] LABS: Source, Urine Clean Catch
[2024-04-11 17:48] LABS: Appearance, Urine Clear (Clear); Bilirubin, Urine Neg (Neg); Color, Urine Yellow (P-Yellow); Ketones, Urine Neg (Neg); Urobilinogen, Urine NORM (Normal)
[2024-04-11 18:07] LABS: Blood, Urine Neg (Neg); Glucose Qualitative, Urine Neg (Neg); Leukocyte Esterase, Urine 2+ (Neg); Nitrite, Urine Neg (Neg); Protein, Urine 1+ (Neg)
[2024-04-11 18:08] LABS: Red Blood Cells, Urine 0-2 /hpf (0-2)
[2024-04-11 18:09] LABS: Bacteria Few /hpf; Squamous Epithelial Cells Rare /hpf (Few)
[2024-04-11] MEDS ORDERED: Norco 5-325 Ta1 EACH PO (18:58)
[2024-04-11] MEDS ORDERED: LATA.005SO BOTHEYES (18:59)
[2024-04-11] MEDS ORDERED: FentaNYL Citrate 50 MCG/ML 2 ML Injection IV PRN (19:05)
[2024-04-11 19:13] LABS: Hematocrit 26.5 % (37.0-53.0); Hemoglobin 9.1 g/dL (13.5-17.5)
--- NOTE | 2024-04-11 19:27 | NUR ---
SHIFT SUMMARY: NEURO: PATIENT ALERT AND ORIENTED 3. PATIENT HAS STML AND IS [place]. HEARING AIDES ARE IN. PATIENT ABLE TO MAKE NEEDS KNOWN AND FOLLOWS DIRECTIONS. PATIENT TWITCHES FREQUENTLY IN THE BED RELATED TO DIAGNOSIS OF TURRETTS. PATIENT MEDICATED THROUGHOUT THE SHIFT FOR PAIN OF THE RIGHT SIDE. RESPIRATORY: CHEST TUBE PLACED THIS AM AROUND 09:00. 1780 ML OF SANGINOUS OUTPUT IN CHEST TUBE COLLECTION DURING THE SHIFT. THE SHIFT PROGRESSED, THE FLOW OF OUTPUT SLOWED AND THE COLOR LIGHTENED. LUNG SOUNDS PRESENT IN THE RIGHT LOWER LOBE AFTER PLACEMENT OF CHEST TUBE. INCREASD O2 TO 5L VIA NC. SPO2 >90%. CARDIAC: PATIENT AV PACED THROUGHOUT THE SHIFT. BLOOD PRESSURES STABLE WITH MAPS >65. HR IN THE 70S-80S. PATIENT DENIED CHEST PAIN. PATIENT RECEIVED TWO UNITS OF PRBCS TODAY. STRONG PULSES IN ALL FOUR EXTREMITIES. GI/: PATIENT VOIDING WITHOUT DIFFICULTY. PUREWICK IN PLACE. CLEAR YELLOW URINE. PATIENT REPORTS HISTORY OF CONSTIPATION. MEDICATION REC UPDATED - PATIENT TAKES LACTULOSE AT HOME PRN. PSYCHSOCIAL: PATIENT CALM AND COOPERATIVE. PATIENT'S AT BEDSIDE FOR MOST OF THE SHIFT.
[2024-04-11] MEDS ORDERED: TraZODone HCl 50 MG Tab PO SCH (21:00)
[2024-04-11] MEDS ORDERED: Cyclobenzaprine HCl 10 MG Tab PO PRN (21:45)
--- NOTE | 2024-04-11 22:57 | NUR ---
ASSUMPTION OF CARE PT LYING IN BED, ALERT AND ORIENTED TO ALL, TALKING TO IN ROOM. PT REPORTS RESTLESS LEG SYNDROME THAT HE TREATS AT HOME WITH CALCIUM AND THC/CBD TINCTURE. BEFORE THIS WAS MADE KNOWN, A CALL TO PROVIDER WAS PLACED FOR MUSCLE CRAMPS AND FLEXIRIL WAS ADMINISTERED. HR VENTRICULAR PACED ON THE MONITOR WITH A DUAL PACING SYSTEM IN PLACE. BP STABLE, SBP 110-130. RATE IS 70. PT SATURATION 95% ON 5L NC. CHEST TUBE IN PLACE ON R SIDE, DRAINING SEROSANGUINOUS FLUID TO WATER-SEAL SUCTION. NO CHEST PAIN/PRESSURE OR SOB. ALSO NO AB PAIN, N/V. PUREWICK IN PLACE. CALL LIGHT HANDY.
[2024-04-12] VITALS (8 sets, daily range): BP systolic 94–167; BP diastolic 46–81
[2024-04-12 05:16] LABS: BASOPHILS ABSOLUTE AUTO 0.05 K/mm3 (0.00-0.23); BASOPHILS PERCENT AUTO 0 % (0-2); EOSINOPHILS ABSOLUTE AUTO 0.12 K/mm3 (0.00-0.68); EOSINOPHILS PERCENT AUTO 1 % (0-6); Hematocrit 24.7 % (37.0-53.0); Hemoglobin 8.3 g/dL (13.5-17.5); IMMATURE GRAN ABSOLUTE AUTO 0.16 K/mm3 (0.00-0.10); IMMATURE GRAN PERCENT AUTO 1 % (0-1); LYMPHOCYTES ABSOLUTE AUTO 1.67 K/mm3 (0.84-5.20); LYMPHOCYTES PERCENT AUTO 10 % (21-46); MONOCYTES PERCENT AUTO 12 % (4-13); Mean Corpuscular HGB 30.7 pg (26.0-34.0); Mean Corpuscular HGB Conc 33.6 g/dL (31.5-36.5); Mean Corpuscular Volume 92 fL (80-100); Mean Platelet Volume 9.7 fL (9.1-12.4); NEUTROPHILS ABSOLUTE AUTO 13.33 K/mm3 (1.96-9.15); NEUTROPHILS PERCENT AUTO 77 % (41-73); Platelet Count 214 K/mm3 (150-400); RDW Coefficient Variation 14.9 % (11.7-14.2); RDW Standard Deviation 49.1 fL (35.1-46.3); White Blood Cell Count 17.43 K/mm3 (4.00-11.30)
[2024-04-12] MEDS ORDERED: Lactulose 10 GM/15 ML UDC PO PRN (05:55)
[2024-04-12 06:33] LABS: Creatinine, Blood 1.05 mg/dL (0.60-1.20); Potassium, Blood 3.1 mmol/L (3.5-5.5)
[2024-04-12] MEDS ORDERED: Piperacillin/Tazobactam Sod 3.375 GM in NS 100 ML IV SCH (08:00)
[2024-04-12] MEDS ORDERED: Potassium Chloride 20 MEQ TabCR PO ONE (08:00)
[2024-04-12] MEDS ORDERED: Albuterol 2.5 MG/3 ML VIAL INH PRN (08:30)
--- NOTE | 2024-04-12 10:00 | NUR ---
CATHETER CLAMPED, BLADDER TRAINING STARTED PER DR. BISHOP.
[2024-04-12] MEDS ORDERED: GABA300 PO (11:04)
[2024-04-12] MEDS ORDERED: LISI10 PO (11:05)
[2024-04-12] MEDS ORDERED: BELSOMRA10 MG PO (11:08)
[2024-04-12] MEDS ORDERED: DAYVIGO5 MG PO (11:10)
--- NOTE | 2024-04-12 11:34 | NUR ---
REASSESSMENT PT HAS BEEN UP IN THE CHAIR THIS MORNING. HE IS ALERT AND ORIENTED. SOMETIMES FORGETFUL OR SEEMS A LITTLE CONFUSED, BUT PT IS ALSO HARD OF HEARING, WHICH MAY BE CONTRIBUTING. HEARING AID BATTERIES REPLACED THIS MORNING, WHICH HAS HELPED. LUNGS ARE CLEAR ON THE LEFT, CRACKLES ON THE RIGHT. CHEST TUBE TO WATER SEAL AND DRAINING SS FLUID. NO CREPITUS, NO FLUCTUATION WITH COUGH. OXYGEN TITRATED DOWN TO 1L/NC, SPO2 95% CURRENTLY. PT'S PUREWICK WAS LEAKING THIS MORNING SO SWITCHED TO BRIEFS. PT'S AT BEDSIDE AND WAS UPDATED. SHE BROUGHT CURRENT MED LIST SO MED REC UPDATED.
--- NOTE | 2024-04-12 12:17 | NUR ---
Pt. is awake and sitting up in a chair when he welcomes my visit. Spouse is at bedside and displays evidence of being supportive. Facilitated an update to his life review from the previous day. Considered matters of lillie and some of their families world travels. Pt. seems a little unsettled by an uncertain diagnosis of a bleed he is experiencing. Listen with empathy and a calming presence. Seek to normalize the Pt. experience. Prayed with the Pt. Both Pt. and spouse verbalized gratitude for the spiritual care visit. Will remain available to the Pt. and spouse.
--- NOTE | 2024-04-12 14:40 | NUR ---
TRANSFER PT TRANSFERRED TO 210 VIA . REPORT GIVEN TO DULCE MARIA MITCHELL. ALL BELONGINGS TRANSFERRED WITH PT INCLUDING CANE AND BOTH HEARING AIDS. PT'S INFORMED OF NEW ROOM. PT TOLERATED TRANSFER WELL.
--- NOTE | 2024-04-12 15:20 | NUR ---
PT ARRIVED TO THE ROOM FROM ICU AT APPROXIMATELY 1440. PT ALERT/ORIENTED UPON ARRIVAL. UPON ARRIVAL PT HAS INCREASED RESP EFFORT AND REPORTED FEELING SHORT OF BREATH WITH ACTIVITY, PT STATES THIS IS NOT UNUSUAL FOR HIM. LUNG SOUNDS ARE DIM IN THE RIGHT BASE, OTHERWISE COARSE T/O. CHEST TUBE PRESENT TO R CHEST. CONNECT TO -20 SUCTION, NO FLUCTUATION OR AIR LEAK OBSERVED. PAIN MANAGED. VSS. PT PROVIDED WITH CALL LIGHT AND EDUCATED TO USE.
--- NOTE | 2024-04-12 17:10 | NUR ---
PT'S DAUGHTER REPORTS THAT PT'S WISHES ARE TO BE A DNR. SPOKE WITH DR. BISHOP, SHE CHANGED CODE STATUS TO DNR. PALLIATIVE CARE CONSULT PLACED TO ASSIST FAMILY WITH FILLING OUT A POLST FORM.
--- NOTE | 2024-04-12 18:20 | NUR ---
SHIFT SUMMARY NO CHANGES TO REPORT SINCE PT ARRIVED FROM ICU. MALE PUREWICK IN PLACE FOR PT COMFORT. PAIN MANAGED WITH IV FENTANYL AND PO PAIN MEDICATION. PT COMPLAINING OF RESTLESS LEG SYNDROME THIS EVENING. PT USES CALL LIGHT APPROPRIATELY.
--- NOTE | 2024-04-13 05:09 | NUR ---
SHIFT SUMMARY ASHLEY WAS ALERT AND FULLY ORIENTED ON ASSESMENT. 1-3L O2 NEEDED TO MAINTAIN SATS WHILE SLEEPING, SATTING 96 ON RA AT THIS TIME WHILE AWAKE. CHEST TUBE SUCTIONING WITH NO VISIBLE AIR LEAKS. LARGE VOLUME URINE OUTPUT TONIGHT. PAIN IS WELL CONTROLLED AT THIS TIME. LUNG SOUNDS HAVE BECOME MORE WHEEZY SINCE THE START OF SHIFT, PT STATES THAT HIS BREATHING FEELS UNCHANGED. NO ACUTE EVENTS OR NOTED CHANGES TO PT CONDITION.
[2024-04-13 05:11] VITALS: BP 131/59
[2024-04-13 05:14] LABS: Mean Corpuscular HGB 31.6 pg (26.0-34.0); Mean Corpuscular HGB Conc 33.3 g/dL (31.5-36.5); Mean Corpuscular Volume 95 fL (80-100); Mean Platelet Volume 9.3 fL (9.1-12.4); Platelet Count 220 K/mm3 (150-400); RDW Coefficient Variation 14.7 % (11.7-14.2); RDW Standard Deviation 50.2 fL (35.1-46.3); Red Blood Cell Count 2.53 M/mm3 (4.30-5.90); White Blood Cell Count 14.41 K/mm3 (4.00-11.30)
[2024-04-13 05:44] LABS: Bun/Creatinine Ratio 19.5 (12.0-20.0); Calcium, Blood 7.8 mg/dL (8.5-10.1); Creatinine, Blood 0.93 mg/dL (0.60-1.20); Potassium, Blood 3.1 mmol/L (3.5-5.5)
[2024-04-13 07:21] VITALS: BP 127/62
[2024-04-13] MEDS ORDERED: Potassium Chloride 20 MEQ TabCR PO ONE (08:25)
[2024-04-13] MEDS ORDERED: Calcium Carbonate 500 MG Tab Chew PO ONE (11:05)
[2024-04-13] MEDS ORDERED: Lactulose 20 GM/30 ML UDC PO PRN (11:20)
[2024-04-13] MEDS ORDERED: Calcium Carbonate 500 MG Tab Chew PO PRN (13:35)
[2024-04-13] MEDS ORDERED: Pramipexole DI-HCL 0.125 MG Tab PO SCH (14:00)
[2024-04-13 14:14] VITALS: BP 128/73
--- NOTE | 2024-04-13 15:29 | NUR ---
SHIFT SUMMARY PT IS A/OX4, COOPERATIVE W/ CARE. SBA TO [facility]/ [facility] FOR CORD MANAGEMENT. PT HAS PAIN ASSOCIATED W/ RIB FX, MEDICATED W/ PRN PAIN MEDS. PT ALSO MEDICATED FOR RESTLESS LEGS W/ TOLERABLE RESULTS. PT WHEEZING INTERMITTENTLY, BREATHING TX W/ RT PRN, PT REPORTS DECREASED WOB AND HAS CLEAR/DIMINISHED LUNG SOUNDS AFTER TX. MEPITEL APPLIED TO SKIN TEAR ON R ARM. ABX GIVEN PER EMAR. O2 SATS >92% ON RA, CONT BIOX IN PLACE. PT VOIDING W/ MALE PURWICK IN PLACE. VSS. SPOUSE AT BEDSIDE. PT USING CALL LIGHT APPROPRIATELY. REPORT TO ONCOMING RN.
--- NOTE | 2024-04-13 17:30 | NUR ---
Pt. is awake in bed when he welcomed my visit. Spouse is at bedside. Facilitated an update that included the Pts. understanding of the plan of care. The Pt. and spouse verbalized gratitude for the spiritual care visit.
[2024-04-13 19:38] VITALS: BP 106/57
[2024-04-13] MEDS ORDERED: Famotidine 20 MG Tab PO SCH (21:00)
[2024-04-14] MEDS ORDERED: Magnesium Hydroxide Conc 10 ML UDC PO PRN (02:10)
[2024-04-14] MEDS ORDERED: Bisacodyl 10 MG Supp PR PRN (02:10)
[2024-04-14 04:45] VITALS: BP 126/67
--- NOTE | 2024-04-14 05:00 | NUR ---
SHIFT SUMMARY PATIENT AOX4, 1 ASSIST TO BSC, CHEST TO WALL SUCTION, -20MMHG. SS OUTPUT, APPROX 50ML THIS SHIFT. LUNGS SOUNDS ARE WHEEZY AND COURSE IN UPPER LOBES, DIMINSHED IN LOWER LOBES. I.S. AND FLUTTER VALVE AT BEDSIDE PATIENT EDUCATED ON USE BENEFITS. PATIENT IS COUGHING UP YELLOW, GREEN SPUTUM. BREATHING TX Q4,PRN. VOIDING WELL WITH MALE PUREWICK IN PLACE. VSS, CALL LIGHT IS IN REACH
[2024-04-14] MEDS ORDERED: Piperacillin/Tazobactam Sod 3.375 GM in NS 100 ML IV SCH (06:00)
[2024-04-14 07:32] VITALS: BP 116/68
[2024-04-14] MEDS ORDERED: Ondansetron HCl 2 MG / ML 2ML Vial IV PRN (08:50)
[2024-04-14] MEDS ORDERED: Ondansetron HCl 2 MG / ML 2ML Vial ONE (08:53)
[2024-04-14] MEDS ORDERED: Docusate Sodium 100 MG Cap PO SCH (09:00)
[2024-04-14] MEDS ORDERED: Sennosides 8.6 MG Tab PO SCH (09:00)
[2024-04-14 10:12] LABS: BASOPHILS ABSOLUTE AUTO 0.04 K/mm3 (0.00-0.23); BASOPHILS PERCENT AUTO 0 % (0-2); EOSINOPHILS ABSOLUTE AUTO 0.26 K/mm3 (0.00-0.68); EOSINOPHILS PERCENT AUTO 2 % (0-6); Hemoglobin 8.9 g/dL (13.5-17.5); IMMATURE GRAN PERCENT AUTO 1 % (0-1); LYMPHOCYTES ABSOLUTE AUTO 1.11 K/mm3 (0.84-5.20); LYMPHOCYTES PERCENT AUTO 7 % (21-46); MONOCYTES ABSOLUTE AUTO 1.61 K/mm3 (0.16-1.47); MONOCYTES PERCENT AUTO 10 % (4-13); Mean Corpuscular HGB 31.1 pg (26.0-34.0); Mean Corpuscular Volume 94 fL (80-100); Mean Platelet Volume 9.8 fL (9.1-12.4); NEUTROPHILS ABSOLUTE AUTO 12.36 K/mm3 (1.96-9.15); NEUTROPHILS PERCENT AUTO 80 % (41-73); Platelet Count 295 K/mm3 (150-400); RDW Coefficient Variation 15.1 % (11.7-14.2); RDW Standard Deviation 50.4 fL (35.1-46.3); Red Blood Cell Count 2.86 M/mm3 (4.30-5.90); White Blood Cell Count 15.48 K/mm3 (4.00-11.30)
[2024-04-14 10:21] LABS: Bun/Creatinine Ratio 22.5 (12.0-20.0); Calcium, Blood 8.9 mg/dL (8.5-10.1); Creatinine, Blood 0.76 mg/dL (0.60-1.20); Potassium, Blood 3.4 mmol/L (3.5-5.5)
[2024-04-14] MEDS ORDERED: Potassium Chloride 20 MEQ TabCR PO ONE (12:25)
--- NOTE | 2024-04-14 13:16 | NUR ---
CHEST TUBE LEAK ROUNDED ON PATIENT AND FOUND HIS CHEST TUBE TO BE CONINUOUSLY BUBBLING. CLAMPED THE TUBE BETWEEN THE DRY BOX AND THE PATIENT AND BUBBLING STOPPED IMMEDIATELY. CHECKED THE CONNECTION FROM THE LARGE TUBING TO THE SMALL TUBING AND NO LEAKS DETECTED, KINKED THE LINE ABOVE THE CONNECTION NAD BUBBLING STOPPED. LISTENED AROUND THE INSERTION SITE AND FOUND AN AUDIBLE HISSING SOUND COMING FROM AROUND THE TUBE. THIS SOUND WAS MUFFLED WHEN PRESSURE WAS APPLIED TO THE DRESSING BUT THIS ONLY SLOWED DOWN THE BUBBLING AND DIDN'T STOP IT COMPLETELY. NOTIFIED SECTION GANG WHO ASSISTED IN ASSESSING THE PATIENT. NO CHANGE IN HIS REPORTED SOB, O2 SATS REMAINED IN THE SAME AREA MORNING VITALS. NO SUBCUTANEOUS EMPHASEMA NOTED, AIR WAS AUDIBLE IN THE RLL OF THE CHEST WHEN LISTENING TO HIS BREATHING. NOTIFIED SURGERY WHO WAS IN SURGERY AT THE TIME, STAYED WITH PATIENT AND ASSISTED THE SECTION GANG IN DOING A DRESSING CHANGE WHICH SLOWED THE BUBLING DOWN BUT AGAIN DID NOT STOP IT COMPLETELY. PATIENT NOT INDESTRESS AT THIS TIME.
[2024-04-14 13:49] VITALS: BP 127/73
--- NOTE | 2024-04-14 19:15 | NUR ---
SHIFT SUMMARY S/P GLF WITH RIB FX AND CHEST TUBE, A/OX4, VSS, TOLERATING PO, PAIN WELL MANAGED, CHEST TUBE REMOVED THIS SHIFT BY SURGERY, PER SURGERY HE IS CLEARED TO GO HOME PENDING HOSPITALIST APPROVAL. NO ACUTE EVENTS THIS SHIFT, CALL LIGHT IN REACH.
[2024-04-14 19:20] VITALS: BP 120/66
[2024-04-15 03:59] VITALS: BP 118/57
--- NOTE | 2024-04-15 04:34 | NUR ---
SHIFT SUMMARY POD1 FROM R CT REMOVAL. OCCLUSIVE DRESSING REMAINS IN PLACE, C/D/I. R EYE STITCHES REMAIN NASRIN, NO DRAINAGE NOTED. VSS, PT TOLLERATING BEING ON RA W/ SPO2 OF 90-96%. AFTER NARCOTIC ADMINSTRATION THE PT REQUIRED 2L VIA NC. PT SLEPT ON AND OFF T/O THE NIGHT. MULTIPLE VOIDS AND BM'S NOTED. PT HAS BEEN NOTEABLY WHEEZY T/O THE NIGHT, TOLLERATING BREATHING TX W/SOME IMPROVEMENT. PT W/ I.S @ BEDSIDE. PT TOLELRATING PO INTAKE W/O N/V. DIFFUSE WEAKNESS AND EXPERIENCES SOB W/ EXERTION. PT MEDICATED FOR PAIN W/ NORCO AND FENT FOR BREAKTHROUGH. OVERALL, NO ACUTE EVENTS NOTED.
--- NOTE | 2024-04-15 05:25 | NUR ---
SHIFT SUMMARY POD2 I&D OF R KNEE. PICCO DRESSING REMAINS C/D/I, MINIMAL SHADOWING NOTED. PT REPOTS INCREASED PAIN IN THE EXTREMITY THIS AM, RLE ELEVATED AND ICE PLACED. STRONG PULSE AND SENSATION REMAINS INTACT. VSS. PT SLEPT ON AND OFF T/O THE NIGHT. MEDICATED FOR PAIN WITH NORCO W/TOLLERABLE RESULTS. HEPARIN DRIP RUNNING, RATE ADJUSTED BY PHARMACY. PT ABLE TO GET OOB TO VOID MULTIPLE TIMES W/SBA. NO ACUTE EVENTS NOTED. PLAN FOR PICC PLACEMENT AND POSSIBLE D/C TODAY.
[2024-04-15 06:07] LABS: Hematocrit 25.9 % (37.0-53.0); Hemoglobin 8.6 g/dL (13.5-17.5); Mean Corpuscular HGB 31.6 pg (26.0-34.0); Mean Corpuscular HGB Conc 33.2 g/dL (31.5-36.5); Mean Corpuscular Volume 95 fL (80-100); Mean Platelet Volume 9.9 fL (9.1-12.4); Platelet Count 303 K/mm3 (150-400); RDW Coefficient Variation 15.4 % (11.7-14.2); Red Blood Cell Count 2.72 M/mm3 (4.30-5.90); White Blood Cell Count 13.81 K/mm3 (4.00-11.30)
[2024-04-15 06:45] LABS: Albumin, Blood 2.5 g/dL (3.4-5.0); Anion Gap 13 mmol/L (3-11); Blood Urea Nitrogen 14 mg/dL (8-24); Bun/Creatinine Ratio 18.5 (12.0-20.0); CO2, Blood 25 mmol/L (21-32); Calcium, Blood 8.3 mg/dL (8.5-10.1); Chloride, Blood 97 mmol/L (98-108); Creatinine, Blood 0.76 mg/dL (0.60-1.20); Glomerular Filtration Rate 89 (60-); Glucose, Blood 135 mg/dL (70-99); Phosphorus, Blood 2.3 mg/dL (2.5-4.9); Potassium, Blood 3.3 mmol/L (3.5-5.5); Sodium, Blood 132 mmol/L (136-145)
[2024-04-15 07:18] VITALS: BP 127/68
[2024-04-15] MEDS ORDERED: Potassium Chloride 20 MEQ TabCR PO ONE (08:40)
[2024-04-15] MEDS ORDERED: HYDROcodone 5-APAP 325 TAB PO PRN (10:50)
--- NOTE | 2024-04-15 11:50 | NUR ---
PT HAD LARGE SOFT BM, STOOL SAMPLE FROM 04/11/24 COLLECTED. PT REPORTS THAT NAUSEA IS IMPROVED FOLLOWING. ABD LESS DISTENDED FROM AM ASSESSMENT.
[2024-04-15 13:06] LABS: Stool Occult Blood Guaiac 1 Neg (Neg)
[2024-04-15 16:04] VITALS: BP 115/74
[2024-04-15 19:21] VITALS: BP 125/59
--- NOTE | 2024-04-15 19:31 | NUR ---
SHIFT SUMMARY PT HAS CONTINUED TO HAVE INCREASED DYPNEA W/EXCERTION T/O SHIFT. RECOVERS EASILY WITH REST. STILL REQUIRING 2LO2 NC TO KEEP SAT'S >90. ALL OTHER VSS T/O SHIFT. PT CONSISTENTLY USING FLUTTER WELL. AMBULATES SBA TO BSC. PAIN IN R SHOULDER, MEDICATED PER EMAR. TOLERATING REGULAR DIET WITH NO N/V THIS AFTERNOON. PT HAS MULTIPLE LARGE SOFT BM, ABD DISTENTION MILDLY IMPROVED.
[2024-04-16 04:10] VITALS: BP 136/60
--- NOTE | 2024-04-16 04:24 | NUR ---
SHIFT SUMMARY POD2 CT REMOVAL. OCCLUSIVE DRESSING REMAINS IN PLACE, C/D/I. BRUISING BEGINNING TO DEVELOP ON THE PTS LATERAL R RIBS, EXTENDING TO HIS R FLANK. NON TENDER TO PALPATION. NO CREPITUS NOTED. VSS. PT HAS HAD A RESTLESS NIGHT, APPEARS TO BE CONFUSED. WHEN ASKED ORIENTATION QUESTIONS, HE IS ABLE TO ANSWER ALL CORRECTLY. BUT, THE PATIENT HAS BEEN ATTEMPTING TO GET OOB W/O ASSISTANCE, ASKING "WHY IS THIS HAPPENING" AND "HOW IS THIS HAPPENING". THE BED ALARM HAS BEEN ON T/O THE SHIFT FOR SAFETY. PT HAS BEEN MEDICATED FOR PAIN TWICE WITH NORCO W/ GOOD RESULTS. DYSPNEA WITH EXERTION NOTED, PT REMAINS ON 1-2L VIA NC. PT CAN TOLLERATE RA WHILE AT REST. FLUTTER VALVE REMAINS AT BEDSIDE AND PT IS ACTIVELY UTILIZING IT. PT HAS BEEN VOIDING LARGE AMOUNTS INCONTINENTLY T/O THE NIGHT, NO BM'S NOTED. OVERALL, NO ACUTE EVENTS NOTED. PLAN FOR D/C PLANNING TODAY.
[2024-04-16 05:50] LABS: Hematocrit 24.9 % (37.0-53.0); Hemoglobin 8.2 g/dL (13.5-17.5); Mean Corpuscular HGB 31.1 pg (26.0-34.0); Mean Corpuscular HGB Conc 32.9 g/dL (31.5-36.5); Mean Corpuscular Volume 94 fL (80-100); Mean Platelet Volume 9.8 fL (9.1-12.4); Platelet Count 311 K/mm3 (150-400); RDW Coefficient Variation 15.1 % (11.7-14.2); Red Blood Cell Count 2.64 M/mm3 (4.30-5.90); White Blood Cell Count 12.39 K/mm3 (4.00-11.30)
[2024-04-16 06:27] LABS: Albumin, Blood 2.4 g/dL (3.4-5.0); Anion Gap 11 mmol/L (3-11); Blood Urea Nitrogen 17 mg/dL (8-24); Bun/Creatinine Ratio 20.9 (12.0-20.0); CO2, Blood 27 mmol/L (21-32); Calcium, Blood 8.2 mg/dL (8.5-10.1); Chloride, Blood 99 mmol/L (98-108); Creatinine, Blood 0.81 mg/dL (0.60-1.20); Ferritin, Serum 40 ng/mL (26-388); Glomerular Filtration Rate 87 (60-); Glucose, Blood 120 mg/dL (70-99); Magnesium, Blood 2.1 mg/dL (1.6-2.4); Phosphorus, Blood 2.1 mg/dL (2.5-4.9); Potassium, Blood 3.6 mmol/L (3.5-5.5); Sodium, Blood 133 mmol/L (136-145)
[2024-04-16 07:18] VITALS: BP 131/64
[2024-04-16 15:48] VITALS: BP 125/53
--- NOTE | 2024-04-16 17:45 | NUR ---
SHIFT SUMMARY PT HAS BEEN A/O X4 TODAY, FOLLOWS COMMANDS. AMBULATING SBA TO BSC, VOIDING, TOLERATING REG DIET. VSS. PT TOLERATING RA AT REST BUT IS REQUIRING 1-2L WHILE SLEEPING/AMBULATING. PT DOES HAVE AUDIBLE WHEEZING AT TIMES THAT IMPROVES W/ USE OF FLUTTER VALVE/IS. PULMONARY TOILETING ENCOURAGED THROUGHOUT SHIFT. DRESSING TO CHEST TUBE REMOVAL SITE C/D/I. CONSULTED DR. TATE REGARDING O2 USE, ORDERS FOR CPAP TONIGHT AND HOME O2 EVAL RECIEVED PT DOES WEAR CPAP DURING THE NIGHT AT HOME. PT CURRENTLY SITTING UP IN CHAIR EATING DINNER W/ SPOUSE AT BEDSIDE, USING CALL LIGHT APPROPRIATELY.
[2024-04-16 19:06] VITALS: BP 128/59
[2024-04-17 04:07] VITALS: BP 140/62
--- NOTE | 2024-04-17 05:10 | NUR ---
SHIFT SUMMARY POD3 FROM CHEST TUBE REMOVAL. OCCLUSIVE DRESSING REMAINS C/D/I. MILD BRUISING HAS DEVELOPED ON R LATERAL RIBS. VSS, PT REMAINS ON 2L VIA NC. PT HAS SLEPT ON AND OFF T/O THE NIGHT. PT REMAINS INCONTINENT OF URINE AND ATTEMPTS TO GET OOB W/O CALLING. THE BED ALARM AND CHAIR ALARM HAS REMAINED ON T/O THE NIGHT. PT TOLLERATING PO INTAKE W/O N/V. PT MEDICATED FOR PAIN PER EMAR, FENT UTILIZED ONCE WHEN PT WAS YELLING OUT IN PAIN. OVERALL, NO ACUTE EVENTS NOTED. AWAITING HOME O2 EVAL AND D/C PLANNING.
[2024-04-17 07:19] VITALS: BP 121/60
--- NOTE | 2024-04-17 13:40 | NUR ---
Pt. is awake and sitting up in a recliner. Pt.pleasant. This specialty molder and Gio (onboarding specialty molder) are present for this visit. Pt. verbalized shoulder discomfort. Listened with empathy a calming presence. Facilitated a life review. Considered matters of lillie and belief. Pts. spouse arrived at bedside. Prayed with Pt. Prayed verbalized gratitude for the prayer and the spiritual care visit.
[2024-04-17 15:51] VITALS: BP 124/59
--- NOTE | 2024-04-17 18:40 | NUR ---
SHIFT SUMMARY/TRANSFER NOTE PT IS A/O X4, AMBULATING SBA BSC. PT HAVING INC AND CONT VOIDS, DRY ATTENDS IN PLACE. PT IS TOLERATING RA INTERMITTENTLY, BUT DOES BECOME SOB W/ AMBULATION, SOMETIMES DURING CONVERSATION, AND REQUIRES UP TO 2LNC TO KEEP O2 SATS >92%. WHEEZING HAS IMPROVED SINCE YESTERDAY. PT RECIEVING BREATHING TX PER RT. PT TO WEAR HOME CPAP TONIGHT PER DR. TATE AND HAVE HOME O2 EVAL BEFORE DC. CBG CHECKS AND COVERAGE DC'D PER DR. TATE PT HAS NOT BEEN NEEDING COVERAGE. DRESSING TO R CHEST C/D/I. PT'S PAIN IS TOLERABLE W/ PRN PAIN MEDS AND FLEXERIL. REPORT TO JULY RN PT IS TRANSFERING TO ROOM 327. PT TRANSFERED TO ROOM 327 IN STABLE CONDITION W/ BELONGINGS IN HAND, SPOUSE W/ PT.
[2024-04-17 20:01] VITALS: BP 136/74
[2024-04-18 02:35] VITALS: BP 108/98
--- NOTE | 2024-04-18 05:56 | NUR ---
Shift Summary Sleep study attempted tonight but pt was awake most of the night. He did not tolerate his CPAP mask. He started the night on 2L NC but is now on RA with O2 sat > 92%. Lung sounds are still wheezy with some dyspnea on exertion. R chest dressing C/D/I. Pt c/o R shoulder pain, medicated per emar x1. Pt steady on his feet with FWW, 1 SBA to the BR. Frequent small voids. AOx4, cooperative with care.
[2024-04-18 06:23] LABS: BASOPHILS ABSOLUTE AUTO 0.05 K/mm3 (0.00-0.23); BASOPHILS PERCENT AUTO 0 % (0-2); EOSINOPHILS ABSOLUTE AUTO 0.49 K/mm3 (0.00-0.68); EOSINOPHILS PERCENT AUTO 4 % (0-6); Hematocrit 26.2 % (37.0-53.0); Hemoglobin 8.6 g/dL (13.5-17.5); IMMATURE GRAN ABSOLUTE AUTO 0.06 K/mm3 (0.00-0.10); IMMATURE GRAN PERCENT AUTO 1 % (0-1); LYMPHOCYTES ABSOLUTE AUTO 1.53 K/mm3 (0.84-5.20); LYMPHOCYTES PERCENT AUTO 13 % (21-46); MONOCYTES ABSOLUTE AUTO 1.51 K/mm3 (0.16-1.47); MONOCYTES PERCENT AUTO 13 % (4-13); Mean Corpuscular HGB Conc 32.8 g/dL (31.5-36.5); Mean Corpuscular Volume 95 fL (80-100); Mean Platelet Volume 9.2 fL (9.1-12.4); NEUTROPHILS ABSOLUTE AUTO 8.06 K/mm3 (1.96-9.15); NEUTROPHILS PERCENT AUTO 69 % (41-73); Platelet Count 375 K/mm3 (150-400); RDW Coefficient Variation 15.1 % (11.7-14.2); RDW Standard Deviation 51.5 fL (35.1-46.3); Red Blood Cell Count 2.77 M/mm3 (4.30-5.90)
[2024-04-18 06:57] LABS: Bun/Creatinine Ratio 22.9 (12.0-20.0); Calcium, Blood 8.7 mg/dL (8.5-10.1); Creatinine, Blood 0.79 mg/dL (0.60-1.20); Potassium, Blood 3.7 mmol/L (3.5-5.5)
[2024-04-18 07:28] VITALS: BP 117/54
[2024-04-18] MEDS ORDERED: Calcium Carbon500 MG PO (13:36)
[2024-04-18] MEDS ORDERED: Cyclobenzaprine5 MG PO (13:37)
[2024-04-18] MEDS ORDERED: DOCU100 PO (13:38)
[2024-04-18] MEDS ORDERED: FAMO10 PO (13:39)
[2024-04-18] MEDS ORDERED: SENN187 PO (13:39)
--- NOTE | 2024-04-18 14:33 | NUR ---
Pt. is sitting up in a chair, and dressed for DC. Pt. is pleasant. Spouse is pleasant. Considered matters fo discharge and recovery. Sought to normalize the Pt. experience. Pt. displayed evidence of being fully engaged and aware. Prayed with Pt. Both Pt. and spouse verbalized gratitude for the spiritual care visits.
--- NOTE | 2024-04-18 15:16 | NUR ---
DISCHARGE SUMMARY PATIENT WITH NO ADVERSE EVENTS DURING SHIFT. HE SATTED 92% ON RA WITH CPAP THROUGH THE NIGHT. ASHLEY UP WALKING TO BATHROOM WITH NO ASSISTANCE NEEDED. REMINDERS PROVIDED ON GETTING UP SLOWLY FROM BED. PATIENT MEDICATION AND EDUCATION PACKET PRINTED AND REVIEWED WITH PATIENT AND . SIGNATURE OBTAINED. POWERGLIDE REMOVED FROM RIGHT UPPER ARM WITH NO ADVERSE ISSUES. PATIENT LEFT UNIT AT 1405 WITH VIA TRANSPORT CHAIR AND LEAVING HOSP[facility] VIA PRIVATE VEHICLE.
== END 2024-04-18 14:23 | disposition home health service (06) | DRG 199 ==
LOC: ER 20:02 → ICUE 20:03 → ERHOLD 20:03 → MEDS 20:03 → SURS 04-11 04:09 → ICUE 04-11 04:09 → MEDS 04-11 04:09 → ICUE 04-11 04:33 → SURS 04-12 14:34 → MEDS 04-17 20:12
PROVIDERS: Emergency Medicine; Internal Medicine; Student in an Organized Health Care Education/Training Program; Surgery; ADMIT Surgery
PROC: 0HQ1XZZ Repair Face Skin, External Approach (ICD-10-PCS; 2024-04-10)
PROC: 30233N1 Transfusion of Nonautologous Red Blood Cells into Peripheral Vein, Percutaneous Approach (ICD-10-PCS; 2024-04-11)
PROC: 30283B1 Transfusion of Nonautologous 4-Factor Prothrombin Complex Concentrate into Vein, Percutaneous Approach (ICD-10-PCS; 2024-04-11)
PROC: 0W9930Z Drainage of Right Pleural Cavity with Drainage Device, Percutaneous Approach (ICD-10-PCS; principal; 2024-04-11 09:00)
DX: S27.1XXA Traumatic hemothorax, initial encounter (principal); J96.01 Acute respiratory failure with hypoxia; S22.41XA Multiple fractures of ribs, right side, initial encounter for closed fracture; D62 Acute posthemorrhagic anemia; I48.20 Chronic atrial fibrillation, unspecified; E87.1 Hypo-osmolality and hyponatremia; E87.20 Acidosis, unspecified; J98.11 Atelectasis; Z66 Do not resuscitate; E03.9 Hypothyroidism, unspecified; E11.9 Type 2 diabetes mellitus without complications; E78.5 Hyperlipidemia, unspecified; N40.0 Benign prostatic hyperplasia without lower urinary tract symptoms; I11.0 Hypertensive heart disease with heart failure; I50.9 Heart failure, unspecified; G47.33 Obstructive sleep apnea (adult) (pediatric); Z96.653 Presence of artificial knee joint, bilateral; G30.9 Alzheimer's disease, unspecified; M19.90 Unspecified osteoarthritis, unspecified site; S01.111A Laceration without foreign body of right eyelid and periocular area, initial encounter; E87.6 Hypokalemia; F32.A Depression, unspecified; F06.70 Mild neurocognitive disorder due to known physiological condition without behavioral disturbance; G25.81 Restless legs syndrome; R29.6 Repeated falls; F95.2 Tourette's disorder; R14.0 Abdominal distension (gaseous); E86.0 Dehydration; Z28.21 Immunization not carried out because of patient refusal; Z90.49 Acquired absence of other specified parts of digestive tract; Z98.890 Other specified postprocedural states; Z95.0 Presence of cardiac pacemaker; Z79.01 Long term (current) use of anticoagulants; Z79.02 Long term (current) use of antithrombotics/antiplatelets; Z88.8 Allergy status to other drugs, medicaments and biological substances; Z91.011 Allergy to milk products; Z88.5 Allergy status to narcotic agent; Z79.899 Other long term (current) drug therapy; Z79.84 Long term (current) use of oral hypoglycemic drugs; Z79.890 Hormone replacement therapy; W01.198A Fall on same level from slipping, tripping and stumbling with subsequent striking against other object, initial encounter
CPT/HCPCS: 0241U; 12013; 36415; 36430; 70450; 71045; 71046; 71250; 71260; 72125; 74018; 74177; 80048; 80053; 80069; 81001; 82270; 82728; 82947; 83605; 83735; 84145; 84484; 85014; 85018; 85025; 85027; 85520; 85610; 85730; 86850; 86900; 86901; 86923; 87040; 87070; 87075; 87086; 87205; 93005; 93010; 94640; 94664; 94760; 94762; 96361-59; 96365-59; 96367-59; 96375-59; 96376-59; 97110; 97116; 97162; 97165; 97530; 99285-25; A9270; C1729; C1751; J0456; J0696; J1940; J2250; J2405; J2543; J3010; J7030; J7040; J7050; J7168; P9016; Q9967